=== PATIENT | male | born 1960 | race Caucasian/White ===

== ENCOUNTER 2024-03-14 01:54 | Emergency (ER) | payer MEDICARE, SELFPAY ==
[2024-03-14 01:54] VITALS: BMI 25.8
[2024-03-14 02:08] VITALS: BP 150/90
--- NOTE | 2024-03-14 02:19 | ED.GENMED ---
History of Present Illness
General
Chief Complaint: Male Genito-Urinary Symptoms
Source: patient
Time Seen by Provider: 03/14/24 02:09
Travel History
Have you had any contact with someone who has COVID-19?: No
Do you have any symptoms of coronavirus? Fever > 100 degrees, chills, cough, shortness of breath, sore throat, loss of taste or smell, muscle aches, or headache?: No
History of Present Illness
History of Present Illness:
63-year-old male presenting the emergency department for evaluation of significant lower abdominal pressure and a feeling of needing to urinate but is unable to do so. Patient states he last voided a little over 4 hours ago. Notes no history of
similar, no known history of prostate issues or history of urinary tract infections. Denies any fevers, chills, rigors, back or flank pain, testicular pain, nausea or vomiting.
Past History
Past History
ED Past Medical History: Hypercholesterolemia
ED Past Surgical History: Appendectomy and Orthopedic
Social History
Tobacco: Non-smoker
Alcohol: Occasional
Drug: None
Personal:
Living: with family
Employment: Employed
Review of Systems
Review of Systems
All Other Systems: ROS reviewed and negative except as documented in HPI and ROS
Phy Exam
Physical Exam
Physical Exam:
GENERAL: Alert , in no apparent distress but does appear uncomfortable
EYE: clear conjunctiva b/l
HEAD: NCAT
ENT: o/p clr, mmm.
ABDOMEN: Firm, distended within the lower portion of the abdomen and tender suprapubically, no r/g, no cvat
NEUROLOGICAL: Alert and oriented
SKIN: Warm and dry, skin intact.
MUSCULOSKELETAL: well perfused.
PSYCH: Normal and appropriate interaction.
Scores
Heart Failure Risk
Heart Failure Risk Score: Not Applicable
Heart Score for Chest Pain Patients
STEMI patient?: Not applicable
Withdrawal Assessment of Alcohol
Withdrawal Assessment Completed?: Not applicable
Course
Orders/Labs/Results
Orders:
Orders
03/14/24 02:19
Grayson Placement- Treatment ONCE
Reason for insertion: Acute Retention
03/14/24 02:27
Tamsulosin [Flomax] 0.4 mg PO NOW STA
03/14/24 02:30
Urinalysis Reflex To Culture Urgent
Date Specimen was Collected: 03/14/24
Time Specimen was Collected: 02:29
Urine Microscopic Reflex Cult Urgent
Abnormal Lab Results
03/14/24
02:30
Ur Occult Blood Reflex 2+ A
(Negative)
Urine Bacteria (Reflex) Few A
(Negative)
Vital Signs
Initial and Last Documented VS:
Initial Vital Signs
Temp Pulse Resp Pulse Ox
97.7 F 73 18 97
03/14/24 02:02 03/14/24 02:02 03/14/24 02:02 03/14/24 02:02
Last Documented Vital Signs
Temp Pulse Resp BP Pulse Ox
97.7 F 59 20 118/73 96
03/14/24 02:02 03/14/24 02:43 03/14/24 02:43 03/14/24 02:43 03/14/24 02:43
MDM/Problems Addressed
Differential Diagnosis Includes:
BPH, UTI, kidney injury, kidney stone, prostatitis
MDM/Problems Addressed:
63-year-old male present emergency department for evaluation of acute urinary retention. Patient's abdomen is distended and firm with tenderness but unable to void. ER bladder scanner is broken and due to patient's level of discomfort decision was
ultimately made to place Grayson catheter due to high suspicion of acute urinary retention likely caused from BPH. Will send a urinalysis. Anticipate discharge home with Grayson catheter bag and need for urology outpatient follow-up.
*Pulse Oximetry
Patient hypoxic: no
*Critical Care Note
Total Time (30-74mins, 75-104mins- exclusive of procedures): Not Applicable
Comment
Comment:
We were able to obtain the bladder scanner from one of the admitted force prior to placing the Grayson catheter and this showed greater than the 1000 mL of urine retained within the bladder. Once Grayson catheter was in a large volume of clear yellow
urine within Grayson bag. Urinalysis to be sent. Anticipate discharge home on Flomax with urology follow
Patient Management
Escalation/DeEscalation of care consider admission/obs:
Urinalysis without signs of infection. Stable for discharge home and outpatient follow up with urology. Aware of return precautions
ED Attending Note
-
Portions of this chart may have been created with voice recognition software.� Occasional wrong word or��sound alike� substitutions may have occurred due to the inherent limitations of voice recognition software.
Discharge Plan
Departure
Patient Disposition: Home (Routine Discharge)
Date of Disposition: 03/14/24
Time of Disposition: 02:34
Patient with high blood pressure during this ER visit?: Yes
Discharge Problem:
Acute urinary retention
Instructions: How to Care for Your Grayson Catheter, Male
Prescriptions:
New
tamsulosin [Flomax] 0.4 mg capsule
0.4 mg PO DAILY Qty: 30 0RF
No Action
oxycodone-acetaminophen 5 MG/325 MG tablet
1 tab PO Q6HPRN PRN (Reason: pain) Qty: 12 0RF
Referrals:
Chandler Singh Jr., MD [Active] - (Urology - Call for appointment)
Interventions
Interventions:
*Risk Screen - Suicide Last Done: 03/14/24 02:02
*General Assessment Last Done: 03/14/24 02:02
*Neglect/Abuse Screening Last Done: 03/14/24 02:02
ED- Fall Risk Assessment Last Done: 03/14/24 02:02
*ED COVID-19 Vaccine History Last Done: 03/14/24 02:02
*Nursing Disposition Last Done: 03/14/24 03:17
ED-Male Genitourinary Assessment Last Done: 03/14/24 02:15
Discharge Date and Time
Discharge Date/Time: 03/14/24 03:17
Print Language: IRISH
[2024-03-14] MEDS: FLOMAX 0.400000000000000022 MG PO (02:37)
[2024-03-14 02:43] VITALS: BP 118/73
[2024-03-14 02:51] LABS: Urine Albumin Negative (Neg - Trace); Urine Bilirubin Negative (Negative); Urine Character Clear (Clear); Urine Color Yellow; Urine Glucose Negative (Negative); Urine Ketone Negative (Negative); Urine Leukocyte Negative (Negative); Urine Nitrite Negative (Negative); Urine Occult Blood 2+ (Negative); Urine Urobilinogen Negative (Neg - 1+)
[2024-03-14 03:03] LABS: Urine Bacteria Few (Negative); Urine Red Blood Cell 0-2 /HPF (0-2); Urine Squamous Cell 0-2 /LPF (Few); Urine White Cell 0-2 /HPF (0-5)
== END 2024-03-14 03:17 | disposition home or self-care (01) ==
LOC: EMR 01:54
PROVIDERS: Physician Assistant Medical; EMERGENCY PHYSICIAN Emergency Medicine; FAMILY PHYSICIAN Internal Medicine
DX: R33.9 Retention of urine, unspecified (principal); R10.30 Lower abdominal pain, unspecified; R14.0 Abdominal distension (gaseous); R03.0 Elevated blood-pressure reading, without diagnosis of hypertension; E78.00 Pure hypercholesterolemia, unspecified; Z88.5 Allergy status to narcotic agent; Z91.018 Allergy to other foods
CPT/HCPCS: 99284; 51798; 51702; 81003; 81015

== ENCOUNTER → 2024-09-16 09:18 | Outpatient (REF) | payer MEDICARE, SELFPAY | LOC: PAVMRI 09:18 | PROVIDERS: ATTENDING PHYSICIAN Orthopaedic Surgery; FAMILY PHYSICIAN Internal Medicine | DX: M25.562 Pain in left knee (principal) | CPT/HCPCS: 73721 ==